=== PATIENT | female | born 1945 | race Caucasian/White ===

== ENCOUNTER 2019-12-09 10:38 | Outpatient (CLI) | payer OTHER, SELFPAY ==
[2019-12-09 11:53] LABS: Albumin Level 4.2 g/dL (3.5-5.1); Estimated Glomerular Filt Rate > 60
== END 2019-12-09 10:39 | disposition home or self-care (01) ==
PROVIDERS: PCP Internal Medicine; Visit Provider Orthopaedic Surgery
DX: M17.11 Unilateral primary osteoarthritis, right knee (principal)
CPT/HCPCS: 36415; 82040; 82565

== ENCOUNTER 2020-04-20 07:52 | Outpatient (CLI) | payer OTHER, SELFPAY ==
--- NOTE | 2020-04-20 08:59 | ECG_ITS ---
Measurements Intervals [place] Rate: 45 P: -18 MS: 147 QRS: 10 QRSD: 106 T: 25 QT: 446 QTc: 388 Interpretive Statements SINUS BRADYCARDIA WITH SINUS ARRHYTHMIA DELAYED PRECORDIAL R/S TRANSITION BASELINE ARTIFACT- I, II, AVR, AVL, AVF, V4-V5 ABNORMAL ECG Electronically Signed On 04-20-2020 9:16:03 CDT by Kiran Chew D.O.
[2020-04-20 09:23] LABS: Basophils Percent Auto 0.7 % (0.2-1.2); Eosinophils Absolute Auto 0.2 K/mm3 (0-0.3); Eosinophils Percent Auto 3.6 % (0-4.4); Hematocrit 42.4 % (37.0-47.0); Hemoglobin 14.7 g/dL (12.0-15.0); Immature Granulocyte Absolute 0.04 K/mm3 (0.00-0.031); Immature Granulocyte Percent A 0.7 % (0-0.5); Lymphocytes Absolute Auto 1.12 K/mm3 (0.9-3.2); Lymphocytes Percent Auto 20.1 % (18.3-44.2); Mean Corpuscular HGB Conc 34.7 g/dl (32-36); Mean Corpuscular Hemoglobin 30.1 pg (26-34); Mean Corpuscular Volume 86.7 fl (80-100); Mean Platelet Volume 9.6 fl (7.4-10.4); Monocytes Absolute Auto 0.8 K/mm3 (0.1-0.6); Monocytes Percent Auto 14.3 % (2.6-8.5); Neutrophils Absolute Auto 3.4 K/mm3 (1.3-6.7); Neutrophils Percent Auto 60.6 % (45.5-73.1); Platelet Count Result 299 k/mm3 (150-375); Red Blood Count 4.89 M/mm3 (4.2-5.4); Red Cell Distribution Width 13.4 % (11.5-14.5); White Blood Count 5.6 K/mm3 (4.5-10.0)
[2020-04-20 09:32] LABS: Albumin Level 4.4 g/dL (3.5-5.1)
[2020-04-20 09:36] LABS: Blood Urea Nitrogen 10 mg/dL (7-17); Carbon Dioxide 30 mmol/L (22-30); Chloride 86 mmol/L (98-107); Estimated Glomerular Filt Rate > 60; Glucose 89 mg/dL (65-105); Potassium 3.9 mmol/L (3.4-5.0); Sodium 123 mmol/L (137-145)
[2020-04-20 09:39] LABS: Urine Cotinine NEGATIVE
[2020-04-20 09:51] LABS: Hemoglobin A1C 5.5 % (<5.7)
== END 2020-04-20 07:53 | disposition home or self-care (01) ==
PROVIDERS: Anesthesiology; PCP Internal Medicine; Visit Provider Orthopaedic Surgery
DX: M17.11 Unilateral primary osteoarthritis, right knee (principal); I10 Essential (primary) hypertension; R94.31 Abnormal electrocardiogram [ECG] [EKG]
CPT/HCPCS: 36415; 80048; 80307; 82040; 83036; 85025; 87081; 93005

== ENCOUNTER 2020-05-14 01:13 | Outpatient (CLI) | payer OTHER, SELFPAY ==
[2020-05-14 23:05] LABS: SARS-CoV-2 RNA PCR Negative
== END 2020-05-14 01:14 | disposition home or self-care (01) ==
LOC: ANHCOVIDDT 01:13
PROVIDERS: PCP Internal Medicine; Visit Provider Orthopaedic Surgery
DX: Z01.812 Encounter for preprocedural laboratory examination (principal); Z11.59 Encounter for screening for other viral diseases
CPT/HCPCS: 87635; C9803; U0003

== ENCOUNTER 2020-05-17 01:13 | Day surgery (SDC) | payer OTHER, SELFPAY ==
[2020-04-20 08:15] VITALS: BMI 27.3
[2020-04-20 08:16] VITALS: BP 155/69; PULSE 50; RESP 18; TEMP 36.9; O2SAT 100
[2020-05-17] VITALS (13 sets, daily range): BP systolic 122–155; BP diastolic 59–83; PULSE 47–60; RESP 12–18; TEMP 35.7–36.5; O2SAT 93–100
--- NOTE | ~2020-05-17 | XR_ITS ---
EXAMINATION: XR knee RT 2V DATE: 05/17/2020 10:27 INDICATION: Right knee arthroplasty. Postop. TECHNIQUE: 2 views of right knee were obtained. COMPARISON: Right knee radiographs 10/22/2019 FINDINGS: There is a total right knee arthroplasty with patellar resurfacing in near-anatomic alignme nt. No fracture. There is gas in the soft tissues and knee joint, consistent with recent surgery. IMPRESSION: 1. Total right knee arthroplasty in near-anatomic alignment. Reviewed, dictated and finalized at location A.
[2020-05-17] MEDS: ACETAMINOPHEN 500 MG TABLET 1000 MG PO (06:45)
[2020-05-17] MEDS: LACTATED RINGERS 1,000 ML 30 ML IV CONT ×2 (06:50→10:39)
[2020-05-17] MEDS: KETOROLAC 15 MG/ML VIAL (*BKC) IV PUSH (06:52)
[2020-05-17] MEDS: TRANEXAMIC ACID 1,000MG/ISO100 1,000 MG/100 ML BAG 200 MG IVPB (06:55)
--- NOTE | 2020-05-17 06:58 | WPDANESEPPF ---
Anes - Initial Pre Proc Eval Procedure: Operation Date: 05/17/20 07:30 Proposed Procedures p Right Total Knee Arthroplasty - Tone Redmond MD Date/Time: 05/17/20 06:58 Surgeon: Tone Redmond MD Pre Op Diagnosis: Right Knee OA Patient Data Age: 75 Gender: F Height: 1.73 m Weight: 81.4 kg Last Vital Signs Temp 36.9 C 04/20/20 08:16 Pulse 50 L 04/20/20 08:16 Resp 18 04/20/20 08:16 BP 155/69 H 04/20/20 08:16 Pulse Ox 100 04/20/20 08:16 Allergies Allergy/AdvReac Type Severity Reaction Status Date / Time WENDI Inhibitors Allergy Unknown Cough Verified 05/09/20 08:09 clonidine Allergy Unknown Hives Verified 05/09/20 08:09 Home Medications Medication Instructions Recorded Confirmed Type atorvastatin 20 mg tablet 20 mg PO DAILY 10/22/19 05/09/20 History bimatoprost 0.01 % eye drops 1 drop EACH EYE HS 10/22/19 05/09/20 History nebivolol 10 mg tablet 5 mg PO DAILY 10/22/19 05/09/20 History omeprazole 20 mg capsule,delayed 20 mg PO PRN PRN 10/22/19 05/09/20 History release calcium carbonate-vitamin D3 1 tablet PO BID 04/20/20 05/09/20 History [Calcium 600 + D(3)] melatonin 6 mg PO HS PRN 04/20/20 05/09/20 History tslyfwbwaw-icdxyzrbj-vxqripzvl 1 tablet PO DAILY 04/20/20 05/09/20 History omega 5-bbu-itd-fish oil [Fish Oil] 1 cap PO DAILY 04/20/20 05/09/20 History vit C-vit O-qmvllp-hoae-lutein 2 cap PO DAILY 04/20/20 05/09/20 History [PreserVision Lutein] Patient hx anesthesia problems: none Family hx anesthesia problems: none PMFSH Past Medical History Medical History (Updated 05/16/20 @ 09:47 by Velasquez Pepper DO) Breast cancer GERD (gastroesophageal reflux disease) Glaucoma Hyperlipidemia Hypertension Unilateral primary osteoarthritis, right knee UTI (urinary tract infection) Surgical History Surgical History (Updated 05/16/20 @ 09:47 by Velasquez Pepper DO) History of lumpectomy (~04/2011) History of tubal ligation Social History Social History Smoking status: Never smoker Second hand tobacco smoke exposure: No Additional smoking assessment comments: DENIES ANY FORM OF TOBACCO USE Alcohol intake: former Drinks per week: 3 Substance use: never Living arrangements: with family Spiritual care concerns: No Anes - Eval Final PreProcedure Day of Procedure 05/17/20 06:58 Patient weight: overweight Heart: regular rate and rhythm Lungs: clear to auscultation and normal air movement Airway: Mallampati scale class 1 Neurological: alert and oriented Last oral intake: >/= 8 hours ASA classification: III Emergent: no Anesthetic plan: proceed Anesthesia type and monitoring: general LMA and standard monitoring Informed Consent: The patient's anesthetic plan and its attendant risks and benefits were discussed with the patient/family/POA. Questions were solicited and answers provided to the satisfaction of the patient/family/POA.
--- NOTE | 2020-05-17 06:59 | WPDANESPNB ---
Anes - Peripheral Nerve Block Date/Time: 05/17/20 06:59 I have discussed with the patient/family/POA the placement of a peripheral nerve block for post-operative pain management, including associated risks, benefits, complications, and side effects. Alternative methods of post-operative analgesia were detailed. Questions were solicited and answers provided to the satisfaction of the patient/family/POA. Time-Out: A pre-procedural Time-Out was completed immediately before starting the procedure and confirmed: Patient Identification, Site, Procedure, Patient Position and the Availability of Requisite Equipment. Clinical Indications: Acute post-operative pain management requested by the operative surgeon. Nerve Block Insertion Note Anes-nerve block: adductor canal right Patient position: supine Skin prep: chlorhexidine Needle: 22 gauge, stimulating, insulated echogenic needle. Needle length: 80 mm Technique: ultrasound Injectate: bupivacaine 0.5% with epi 5 mcg/ml (30cc) Observations: tolerated well Complications: none Procedure start time:: 719 Procedure end time:: 722
--- NOTE | 2020-05-17 07:20 | WPDHPUPDATE1 ---
History and Physical Update Update Date/Time: 05/17/20 07:20 History and Physical has been reviewed, including an updated exam of the patient. There are NO changes in the patient's condition. Risks, benefits, and alternatives have been discussed and questions answered. Patient agrees to proceed with procedure.
[2020-05-17] MEDS: ceFAZolin 2 GM/D5W 50 ML 2 GM/50 ML BAG IVPB (07:30)
[2020-05-17] MEDS: GENTAMICIN BONE CEMENT REFOBACIN 1 EACH TOPICAL (09:12)
--- NOTE | 2020-05-17 10:19 | PM.PROC ---
Procedure Note - Detailed Date of procedure: 05/17/20 Pre-op diagnosis: Right Knee OA Post-op diagnosis: same Procedure performed: Total knee arthroplasty Description of procedure: Valgus knee deformity. Large degenerative cyst at the lateral tibia which was bone grafted. Short 50 mm stem extension was used on the tibia. A large lateral release was required. Implants: [place] Triathlon knee system, [place] base plate cemented tibia size 4, 50 mm cemented stem extension. cruciate stabilized pressfit femoral component size 4 ,and an 11 mm cruciate stabilized polyethylene insert. 35mm metal backed patella component. Anesthesia: GETA and regional (subsartorial nerve block) Surgeon: Tone Redmond MD Estimated blood loss (mL): 100 Drains: No Complications: None Condition: stable Disposition: PACU Findings: OPERATIVE DETAILS: The patient was given a nerve block preoperatively, and then brought to the operating room. A general anesthetic was administered. The leg was prepped and draped in the usual sterile fashion. The limb was elevated and the tourniquet inflated to 300 mmHg during the procedure. A longitudinal incision was created along the medial border of the patella and patellar tendon, and a midvastus approach to the knee was performed. No medial release was taken. The knee was then flexed. The osteophytes were carefully removed. The intramedullary guide was placed in the femoral canal. The distal femoral resection was then taken with the oscillating saw. The collateral ligaments were carefully protected. The tibia was carefully exposed. The jig was applied, and the proximal tibia was resected according to the preoperative plan. The knee was balanced in extension. A lateral release was performed, and sequentially increased during the procedure. The anterior cruciate ligament and meniscal remnants were removed. The posterior cruciate ligament was preserved. The patella was measured. Patellar resection was carried out with the oscillating saw. The femur was sized and rotation assessed using a combination of gap balancing, posterior referencing, and the AP axis. The 4 in 1 cutting block was at 4 degrees external rotation to finish the femoral cuts after equal gaps were assured. The lug holes were drilled. The osteophytes were carefully removed from the back of the knee. Appropriate balance with trialing was performed. The knee was copiously irrigated with antibiotic solution periodically throughout the procedure. The meniscal remnants were removed. The spacer block was used to confirm equal flexion and extension gaps. The tibia was sized and broached. Central drilling for the short stem was performed. The bony surfaces were prepared for cementing with pulsatile lavage. Morselized graft, and a solid piece of bone graft was placed and the posterior lateral bony defect. The real tibia was cemented, and the femoral, and patellar components were pressfit into position. Excess cement was carefully removed. Patellar tracking was carefully assessed. No additional releases were required. The wound was closed with #1 Vicryl suture, #2 Quill suture, 0-Quill suture, and 2-0 Quill suture followed by Steri-Strips. A sterile bulky dressing was applied. Meticulous hemostasis was maintained throughout the procedure. The Aquamantis device was used for additional hemostasis. The pain relieving mixture was injected after the exposure. There were no complications. The patient was extubated and brought to the recovery room in stable condition after the application of sterile dressing with Joshua bandage.
--- NOTE | 2020-05-17 11:20 | ADMGEN ---
This patient, Ilda Kaur, was admitted to 2 Medical Room 242-. Patient/family oriented to hospital policies and general routines including ID bracelet, bed and alarms, visiting hours, pain management, procedures, bathroom and other care routines, personal items, smoking policy, room service/diet, and visiting hours. Valuables list has been completed. Information on how to activate the Rapid Response Team has been discussed. Patient/Family are encouraged to report perceived risks to care and to ask questions if they do not understand what they are told or what they should do.
[2020-05-17] MEDS: SODIUM CHLORIDE 0.9% IV 1,000 ML 125 ML IV CONT (11:55)
--- NOTE | 2020-05-17 12:49 | PC.NURSE ---
Patient's Olmasartan was previously put in computer med list as 5mg daily. However, based upon patients med list she gave me during admission, she takes 40mg daily. Patient states her doctor just changed her medications around recently and this was the newest dose. Called to Dr. Redmond's office to notify that the 5mg was restarted for her hospital stay, however she takes the 40mg. Received orders that it is okay to change the dose to what she normally takes at home.
[2020-05-17] MEDS: ONDANSETRON INJ 4 MG/2 ML VIAL IV PUSH ×2 (13:33→17:27)
[2020-05-17] MEDS: ASPIRIN 81 MG ENTERIC TABLET PO (17:24)
[2020-05-17] MEDS: DOCUSATE SODIUM 100 MG CAPSULE PO (17:24)
[2020-05-17] MEDS: MELOXICAM 7.5 MG TABLET PO (17:24)
[2020-05-17] MEDS: MELATONIN 3 MG TABLET 6 MG PO (21:31)
[2020-05-17] MEDS: PANTOPRAZOLE 40 MG TABLET PO (21:32)
[2020-05-17] MEDS: LATANOPROST 0.005% OP SOLN 2.5 ML BTL 1 DROP EACH EYE (21:32)
[2020-05-18 00:48] VITALS: BP 136/60; PULSE 59; RESP 12; TEMP 36.7; O2SAT 98
[2020-05-18 04:48] VITALS: BP 132/59; PULSE 56; RESP 12; TEMP 37.1; O2SAT 99
[2020-05-18 05:31] LABS: Basophils Percent Auto 0.2 % (0.2-1.2); Eosinophils Percent Auto 0.2 % (0-4.4); Hematocrit 33.4 % (37.0-47.0); Hemoglobin 11.3 g/dL (12.0-15.0); Immature Granulocyte Absolute 0.07 K/mm3 (0.00-0.031); Immature Granulocyte Percent A 0.6 % (0-0.5); Lymphocytes Absolute Auto 1.02 K/mm3 (0.9-3.2); Lymphocytes Percent Auto 8.7 % (18.3-44.2); Mean Corpuscular HGB Conc 33.8 g/dl (32-36); Mean Corpuscular Hemoglobin 29.5 pg (26-34); Mean Corpuscular Volume 87.2 fl (80-100); Mean Platelet Volume 10.2 fl (7.4-10.4); Monocytes Absolute Auto 1.1 K/mm3 (0.1-0.6); Monocytes Percent Auto 9.3 % (2.6-8.5); Neutrophils Absolute Auto 9.5 K/mm3 (1.3-6.7); Platelet Count Result 244 k/mm3 (150-375); Red Blood Count 3.83 M/mm3 (4.2-5.4); Red Cell Distribution Width 13.4 % (11.5-14.5); White Blood Count 11.8 K/mm3 (4.5-10.0)
[2020-05-18 05:41] LABS: Anion Gap 9.9 mmol/L (7-16); Blood Urea Nitrogen 14 mg/dL (7-17); Calcium 8.8 mg/dL (8.4-10.2); Carbon Dioxide 26 mmol/L (22-30); Chloride 96 mmol/L (98-107); Estimated CRCL calculation 72 ml/min; Estimated Glomerular Filt Rate > 60; Glucose 100 mg/dL (65-105); Potassium 3.9 mmol/L (3.4-5.0); Sodium 128 mmol/L (137-145)
[2020-05-18] MEDS: ATORVASTATIN 20 MG TABLET PO (08:02)
[2020-05-18] MEDS: OPTI-GEN TAB 2 TABLET PO (08:02)
[2020-05-18 08:03] VITALS: PULSE 60
[2020-05-18] MEDS: ASPIRIN 81 MG ENTERIC TABLET PO (08:03)
[2020-05-18] MEDS: MELOXICAM 7.5 MG TABLET PO (08:03)
[2020-05-18] MEDS: NEBIVOLOL HCL 5 MG TABLET PO (08:03)
[2020-05-18] MEDS: DOCUSATE SODIUM 100 MG CAPSULE PO (08:04)
[2020-05-18] MEDS: OLMESARTAN MEDOXOMIL 20 MG TABLET 40 MG PO (08:04)
--- NOTE | 2020-05-18 08:10 | WPDANESPN ---
Anes - Prog Note Post-Op Date/Time: 05/18/20 08:10 Cardiovascular status: normal Respiratory status: normal Airway patency: baseline Mental status: baseline Post-Op hydration status: normal Vital Signs: Last Vital Signs Temp 37.1 C 05/18/20 04:48 Pulse 60 05/18/20 08:03 Resp 12 05/18/20 04:48 BP 132/59 L 05/18/20 04:48 Pulse Ox 99 05/18/20 04:48 I/O: Intake & Output 05/17/20 05/18/20 05/18/20 23:59 07:59 15:59 Intake Total 1409 150 Output Total 425 1550 Balance 984 -1400 Laboratory Tests 05/18/20 05:03 05/18/20 05:03 05/17/20 05/18/20 05/18/20 06:38 05:03 05:03 WBC 11.8 H RBC 3.83 L Hgb 11.3 L D Hct 33.4 L MCV 87.2 MCH 29.5 MCHC 33.8 RDW 13.4 Plt Count 244 MPV 10.2 Immature Gran % (Auto) 0.6 H Neut % (Auto) 81.0 H Lymph % (Auto) 8.7 L Gregg % (Auto) 9.3 H Eos % (Auto) 0.2 Baso % (Auto) 0.2 Lymph # (Auto) 1.02 Gregg # (Auto) 1.1 H Eos # (Auto) 0.0 Baso # (Auto) 0.0 Abs Immat Gran (auto) 0.07 H Absolute Neuts (auto) 9.5 H Absolute Nucleated RBC 0.0 Nucleated RBC % 0.0 Sodium 128 L Potassium 3.9 Chloride 96 L Carbon Dioxide 26 Anion Gap 9.9 BUN 14 Creatinine 0.60 L Estim Creat Clear Calc 72 Estimated GFR > 60 Glucose 100 Calcium 8.8 Blood Type O Positive Antibody Screen Negative Post-procedural complaints: none Patient Feedback: Patient satisfied with anesthetic care.
[2020-05-18 08:15] VITALS: BP 139/62; PULSE 60
[2020-05-18] MEDS: ONDANSETRON HCL ODT 4 MG TABLET PO (11:01)
[2020-05-18] MEDS: amLODIPine BESYLATE 5 MG TABLET 10 MG PO (12:08)
[2020-05-18 12:09] VITALS: BP 145/61; PULSE 60
== END 2020-05-18 16:15 | disposition home or self-care (01) ==
LOC: ANHSURGERY 06:32 → ANH2MED 11:05
PROVIDERS: PCP Internal Medicine; Visit Provider Orthopaedic Surgery
PROC: (CPT 27447; principal; 2020-05-17 07:30)
DX: M17.11 Unilateral primary osteoarthritis, right knee (principal); G89.18 Other acute postprocedural pain; I10 Essential (primary) hypertension; E78.5 Hyperlipidemia, unspecified; K21.9 Gastro-esophageal reflux disease without esophagitis; H40.9 Unspecified glaucoma; Z85.3 Personal history of malignant neoplasm of breast
CPT/HCPCS: 27447; 64447; 36415; 73560; 80048; 85025; 86850; 86900; 86901; 87635; 97110; 97116; 97161; 97165; 97530; A9270; C1713; C1776; C9803; J0131; J0171; J0690; J1100; J1885; J2250; J2270; J2405; J2704; J2795; J3010; J7030; J7120; U0003

== ENCOUNTER 2021-04-25 13:04 | Outpatient (CLI) | payer OTHER, SELFPAY ==
--- NOTE | ~2021-04-25 | DEXA_ITS ---
Bone Density Report Name: Ilda Kaur Age: 75 Sex: Female Ethnicity: White Date of : 1945 Indication: osteopenia; parental hip fracture; cancer; Referring Provider: [place], [place] Study: Bone densitometry was performed. Exam Date: April 25, 2021 Accession number: [id number] Bone Density: Region BMD T-score Z-score Classification AP Spine (L1, L2, L4) 0.747 -2.6 -0.3 Osteoporosis Femoral Neck (Left) 0.704 -1.3 0.7 Osteopenia Total Hip (Left) 0.803 -1.1 0.6 Osteopenia Total Hip Bilateral Avg 0.801 -1.2 0.6 Osteopenia Femoral Neck (Right) 0.699 -1.3 0.7 Osteopenia Total Hip (Right) 0.799 -1.2 0.5 Osteopenia World Health Organization criteria for BMD impression classify patients as: Normal (T-score at or above -1.0), Osteopenia (T-score between -1.0 and -2.5), or Osteoporosis (T-score at or below -2.5). 10-year Fracture Risk: FRAX not reported because: Some T-score for Spine Total or Hip Total or Femoral Neck at or below -2.5 Previous Exams: Region Exam Age BMD T-score BMD Change BMD Change Date g/cm2 vs Baseline vs Previous AP Spine(L1, L2, L4) 04/25/2021 75 0.747 -2.6 -0.083(-10.0%) -0.021(-2.7%) 12/30/2018 73 0.768 -2.4 -0.062(-7.5%)# -0.036(-4.4%)* 03/22/2015 69 0.804 -2.1 -0.027(-3.2%)# -0.027(-3.2%)# 11/27/2011 66 0.831 -1.8 Total Hip(Left) 04/25/2021 75 0.803 -1.1 -0.062(-7.1%)# -0.103(-11.4%) 12/30/2018 73 0.905 -0.3 0.041(4.8%)# 0.047(5.4%)* 03/22/2015 69 0.859 -0.7 -0.005(-0.6%)# -0.005(-0.6%)# 11/27/2011 66 0.864 -0.6 Total Hip(Right) 04/25/2021 75 0.799 -1.2 -0.183(-18.7%) -0.130(-13.9%) 12/30/2018 73 0.929 -0.1 -0.054(-5.5%)# 0.021(2.3%) 03/22/2015 69 0.908 -0.3 -0.075(-7.6%)# -0.075(-7.6%)# 11/27/2011 66 0.982 0.3 *Denotes significance at 95% confidence level, LSC for AP Spine = 0.022 g/cm2, LSC for Total Hip = 0.027 g/cm2 Clinical Information Provided by Patient: Parent has had a hip fracture Has used the following medications: Vitamin D, Calcium Has the following medical conditions: Cancer Patient maximum height was 69 Menopause Age: 57 Drinks caffeinated beverages Onset of menses at age 15 Number of children 3 Impression: The patient has osteoporosis, based on the Total Spine T-score. The patient has risk factors, including: parental hip fracture. The BMD for the Total Hip(Left) decreased, changing by -11.4% since the last DXA exam. The BMD
== END 2021-04-25 13:05 | disposition home or self-care (01) ==
LOC: ANHIMG 13:06
PROVIDERS: PCP Internal Medicine; Visit Provider Internal Medicine
DX: M81.0 Age-related osteoporosis without current pathological fracture (principal); M85.852 Other specified disorders of bone density and structure, left thigh; M85.851 Other specified disorders of bone density and structure, right thigh
CPT/HCPCS: 77080

== ENCOUNTER 2024-04-24 12:26 | Outpatient (CLI) | payer OTHER, SELFPAY ==
--- NOTE | ~2024-04-24 | XR_ITS ---
EXAMINATION: XR knee LT min 4V DATE: 04/24/2024 13:17 INDICATION: Left knee pain. TECHNIQUE: 4 views of left knee including standing views were obtained. COMPARISON: Left knee radiographs 12/08/2013 FINDINGS: There is valgus angulation at the knee. No fracture. There is moderate osteoarthritis of la teral compartment and mild osteoarthritis of medial and patellofemoral compartments. There is a small knee joint effusion. IMPRESSION: 1. Moderate left knee osteoarthritis. 2. Small left knee joint effusion. Reviewed, dictated and finalized at location A.
--- NOTE | ~2024-04-24 | DEXA_ITS ---
Bone Density Report Name: LIDYA SHAFFER Age: 78 Sex: Female Ethnicity: White Date of : 1945 Indication: osteopenia; monitoring treatment; parental hip fracture; height loss; cancer; Referring Provider: YAS, SAMUEL Study: Bone densitometry was performed. Exam Date: April 24, 2024 Accession number: [id number] Bone Density: Region BMD T-score Z-score Classification AP Spine(L1-L4) 0.875 -1.6 0.9 Osteopenia Femoral Neck (Left) 0.754 -0.9 1.3 Normal Total Hip (Left) 0.873 -0.6 1.3 Normal Femoral Neck (Right) 0.772 -0.7 1.5 Normal Total Hip (Right) 0.885 -0.5 1.4 Normal Total Hip Mean 0.879 -0.6 1.4 Normal World Health Organization criteria for BMD impression classify patients as: Normal (T-score at or above -1.0), Osteopenia (T-score between -1.0 and -2.5), or Osteoporosis (T-score at or below -2.5). 10-year Fracture Risk: FRAX not reported because: Treated for osteoporosis Previous Exams: Region Exam Age BMD T-score BMD Change BMD Change Date g/cm2 vs Baseline vs Previous AP Spine (L1-L4) 04/24/2024 78 0.875 -1.6 0.068 (8.4%)* 0.091 (11.7%)* 12/30/2018 73 0.784 -2.4 -0.024 (-2.9%) -0.024 (-2.9%) 03/22/2015 69 0.807 -2.2 Total Hip(Left) 04/24/2024 78 0.873 -0.6 0.014 (1.6%) 0.070 (8.7%)* 04/25/2021 75 0.803 -1.1 -0.056 (-6.6%) -0.103 (-11.4% 12/30/2018 73 0.905 -0.3 0.047 (5.4%)* 0.047 (5.4%)* 03/22/2015 69 0.859 -0.7 Total Hip(Right) 04/24/2024 78 0.885 -0.5 -0.023 (-2.5%) 0.086 (10.8%)* 04/25/2021 75 0.799 -1.2 -0.109 (-12.0% -0.130 (-13.9% 12/30/2018 73 0.929 -0.1 0.021 (2.3%) 0.021 (2.3%) 03/22/2015 69 0.908 -0.3 *Denotes significance at 95% confidence level, LSC for AP Spine = 0.022 g/cm2, LSC for Total Hip = 0.027 g/cm2 Clinical Information Provided by Patient: Parent has had a hip fracture Is being treated for osteoporosis Has used the following medications: Reclast (i.e. zoledronate), Vitamin D, Calcium Has the following medical conditions: Cancer Patient maximum height was 68.5 Drinks caffeinated beverages Onset of menses at age 15 Number of children 3 Impression: The patient has low bone mass, based on the Total Spine T-score. The patient has risk factors, including: parental hip fracture. No significant bone loss was observed. Discussion: PATIENT UNDER TREATMENT WITH NO SIGNIFICANT BMD LOSS SINCE LAST EXAM. In an untreated isaías
== END 2024-04-24 12:27 | disposition home or self-care (01) ==
PROVIDERS: PCP Internal Medicine; Visit Provider Orthopaedic Surgery
DX: M25.462 Effusion, left knee (principal); M17.12 Unilateral primary osteoarthritis, left knee; M85.88 Other specified disorders of bone density and structure, other site
CPT/HCPCS: 73564; 77080

== ENCOUNTER 2024-06-19 11:58 | Outpatient (CLI) | payer OTHER, SELFPAY ==
[2024-06-19 13:28] LABS: Albumin Level 3.9 g/dL (3.5-5.1)
[2024-06-19 13:30] LABS: Urine Cotinine NEGATIVE
[2024-06-19 13:50] LABS: Hemoglobin A1C 5.5 % (<5.7)
[2024-06-19 14:29] LABS: MRSA (PCR) NOT DETECTED (NOT DETECTE)
== END 2024-06-19 11:59 | disposition home or self-care (01) ==
PROVIDERS: PCP Internal Medicine; Visit Provider Orthopaedic Surgery
DX: Z01.818 Encounter for other preprocedural examination (principal); M17.12 Unilateral primary osteoarthritis, left knee
CPT/HCPCS: 80307; 82040; 83036; 87641

== ENCOUNTER 2024-07-14 01:14 | Day surgery (SDC) | payer OTHER, SELFPAY ==
[2024-06-19 12:24] VITALS: BP 121/74; PULSE 61; RESP 16; TEMP 36.8; O2SAT 99; BMI 28.5
--- NOTE | 2024-06-19 12:42 | PC.NURSE ---
Report to the Outpatient Waiting Room, entrance under the green pavilion located off [facility], at time _8:30am_ on date __07/14/24_. Planned Procedure Time: __10:30am .? Time changes happen often and if your time is changed the preop area will call you the afternoon before. - You and your visitor will be asked to self-screen and do not enter if you have any COVID symptoms. Please call surgeon if you need to reschedule. - A mask is optional within the hospital at this time. Patients may have clear liquids (water, carbonated beverages, clear teas, apple juice) until 3 hours prior to surgery with a maximum of 20 ounces. - No food from midnight until time of surgery and no smoking. Take only the following medications with a SIP of water on the morning of surgery: ___AMLODIPINE, NEBIVOLOL DO NOT STOP ANY OF YOUR OTHER PRESCRIPTION MEDICATIONS PRIOR TO SURGERY EXCEPT THE FOLLOWING Medications to discontinue per physician ___HOLD ALL VITAMINS/SUPPLEMENTS AND IBUPROFEN(NSAIDS) 7 DAYS PRE-OP PER DR TRAN___ Date to take last dose 07/06/24 Please no make-up, nail yi, hairspray, perfume, deodorant, or body powder the day of surgery.? No jewelry (including any body piercings) or valuables the day of surgery, leave them at home.? Please take a shower or bath the night before, or the morning of, surgery with an antibacterial soap.? Wear comfortable, loose fitting clothing.? - Jewelry must be removed prior to entering the operating room.? Rings and piercings that are not removed may be cut off. - The hospital will not accept responsibility for valuables.? - Please leave all valuables, including medications, at home the day of surgery. If you are going home after surgery, a licensed tractor trailer truck driver must drive you home.? - NO public transportation without another adult if you receive anesthesia. - We recommend that an adult stay with you for 24 hours following discharge. - We also recommend that you do not drive, make important decision, drink alcoholic beverages, or take any drugs that were not prescribed by your health care provider for at least 24 hours after your discharge time. Follow any additional instructions given to you from your surgeon. Telephone instructions given to ____PATIENT and asked if any additional questions and then verbalized understanding. Patient advised to call surgeon office or pre surgery nurse liaison [phone] if any additional questions.
[2024-07-14] VITALS (17 sets, daily range): BP systolic 124–150; BP diastolic 60–85; PULSE 56–83; RESP 11–18; TEMP 35.8–36.4; O2SAT 95–100
--- NOTE | ~2024-07-14 | XR_ITS ---
[id number] Ordering provider: Tone Redmond MD History: . POST-OP, LEFT TKA . Comparison: None. FINDINGS: BONES: No acute fracture or dislocation. JOINT SPACES: Total knee arthroplasty. SOFT TISSUES: Postoperative changes in the subcutaneous tissues IMPRESSION: No acute osseous abnormality left knee. Total KNEE ARTHROPLASTY. Reviewed, dictated and finalized at location A.
--- NOTE | 2024-07-14 07:17 | WPDHPUPDATE1 ---
History and Physical Update Update Date/Time: 07/14/24 07:17 History and Physical has been reviewed, including an updated exam of the patient. There are NO changes in the patient's condition. Risks, benefits, and alternatives have been discussed and questions answered. Patient agrees to proceed with procedure.
[2024-07-14] MEDS: ACETAMINOPHEN 500 MG TABLET 1000 MG PO (09:00)
[2024-07-14] MEDS: LACTATED RINGERS 1,000 ML 30 ML IV CONT ×2 (09:05→12:33)
[2024-07-14] MEDS: TRANEXAMIC ACID 1,000MG/ISO100 1,000 MG/100 ML BAG 200 MG IVPB (09:11)
--- NOTE | 2024-07-14 09:53 | WPDANESEPPF ---
Anes - Initial Pre Proc Eval Procedure: Operation Date: 07/14/24 10:30 Proposed Procedures p Left Total Knee Arthroplasty - Tone Redmond MD Date/Time: 07/14/24 09:53 Surgeon: Tone Redmond MD Pre Op Diagnosis: primary oa left knee Patient Data Age: 79 Gender: F Height: 1.72 m Weight: 82 kg Last Vital Signs Temp 97.0 F L 07/14/24 08:38 Pulse 68 07/14/24 08:38 Resp 18 07/14/24 08:38 BP 137/72 07/14/24 08:38 Pulse Ox 100 07/14/24 08:38 O2 Del Method Room Air 07/14/24 08:38 Allergies Allergy/AdvReac Type Severity Reaction Status Date / Time WENDI Inhibitors Allergy Unknown Cough Verified 07/14/24 08:35 clonidine Allergy Unknown Hives Verified 07/14/24 08:35 Home Medications Medication Instructions Recorded Confirmed Type atorvastatin 20 mg tablet 20 mg PO DAILY 10/22/19 07/14/24 History bimatoprost 0.01 % eye drops 1 drop ophthalmic (eye) HS 10/22/19 07/14/24 History ([place]) omeprazole 20 mg capsule,delayed 20 mg PO PRN PRN Heartburn 10/22/19 07/08/24 History release calcium carbonate 600 mg-vitamin 1 tablet PO BID 04/20/20 07/14/24 History D3 5 mcg (200 unit) tablet (Calcium 600 + D(3)) melatonin 3 mg tablet 6 mg PO HS PRN Insomnia 04/20/20 07/14/24 History omega 6-fmi-jpe-fish oil 1,000 mg 1 cap PO DAILY 04/20/20 07/14/24 History (120 mg-180 mg) capsule (Fish Oil) vit C 226 mg-vit E 90 mg-copper 1 cap PO BID 04/20/20 07/14/24 History 0.8 mg-zinc oxide-lutein 5 mg capsule (PreserVision Lutein) amlodipine 10 mg tablet 10 mg PO DAILY 05/17/20 07/14/24 History olmesartan 5 mg tablet 40 mg PO DAILY 05/17/20 07/14/24 History zoledronic acid 5 mg/100 mL in 1 ea IV DIRECTED 05/11/24 07/08/24 History mannitol 5 %-water intravenous piggybck (Reclast) ibuprofen 200 mg capsule 600 mg PO Q6H PRN Pain 06/19/24 07/14/24 History nebivolol 5 mg tablet 5 mg PO QAM 06/19/24 07/14/24 History Laboratory Tests 07/14/24 09:20 Blood Type Pending Antibody Screen Pending Patient hx anesthesia problems: none Family hx anesthesia problems: none Results Review: All pre-operative results and documents have been reviewed as part of the pre-operative evaluation. [facility] Past Medical History Medical History Breast cancer GERD (gastroesophageal reflux disease) Glaucoma Hyperlipidemia Hypertension Unilateral primary osteoarthritis, right knee UTI (urinary tract infection) Surgical History Surgical History History of lumpectomy (~04/2011) History of tubal ligation Family History Family History Mother Hypertension Grandparent Carcinoma of colon Father Family history of arthritis Other Family history of malignant neoplasm of breast Family history of malignant neoplasm of breast in first degree relative Social History Social History Smoking status: Never smoker Alcohol intake: never Drinks per week: 3 Substance use: never Do You Feel Safe in your Home?: Yes Lack of Transportation: No Lack of Food: Never True Current Housing: I Have Housing Concerned About Future Housing: No Difficulty Paying Gas/Electric Bills: No Difficulty Paying for Meds: No Currently Unemployed: No Education: High School Diploma/GED Difficulty w/ Childcare or Family Care: No Living arrangements: with family Additional living arrangements comments: HUSB Spiritual care concerns: No Anes - Eval Final PreProcedure Day of Procedure 07/14/24 09:53 Patient weight: overweight Heart: regular rate and rhythm Lungs: clear to auscultation Airway: Mallampati scale class II Neurological: alert and oriented Last oral intake: >/= 8 hours ASA classification: II Emergent: no An
[2024-07-14] MEDS: ceFAZolin 2 GM/D5W 50 ML 2 GM/50 ML BAG IVPB ×2 (10:11→17:08)
[2024-07-14] MEDS: SODIUM CHLORIDE 0.9% IV 37.7 ML, MORPHINE SULFATE INJ (*CRX) 2 MG, ROPivacaine HCL 1% 2... INFILTRATE (10:48)
[2024-07-14] MEDS: fentaNYL CITRATE INJ (*CRX) 100 MCG/2 ML VIAL 25 MCG IV PUSH ×8 (12:47→13:24)
[2024-07-14] MEDS: HYDROmorphone HCL INJ (*CRX) 1 MG/ML SYR 0.25 MG IV PUSH ×4 (13:11→14:14)
[2024-07-14] MEDS: KETOROLAC 15 MG/ML VIAL (*BKC) IV PUSH (13:52)
[2024-07-14] MEDS: ONDANSETRON INJ 4 MG/2 ML VIAL IV PUSH ×2 (14:40→20:51)
[2024-07-14] MEDS: SODIUM CHLORIDE 0.9% IV 1,000 ML 125 ML IV CONT (14:40)
--- NOTE | 2024-07-14 14:46 | ADMGEN ---
This patient, Ilda Kaur, was admitted to 3 [facility] Surg Room 309-01. Patient/family oriented to hospital policies and general routines including ID bracelet, bed and alarms, visiting hours, pain management, procedures, bathroom and other care routines, personal items, smoking policy, room service/diet, and visiting hours. Information on how to activate the Rapid Response Team has been discussed. Patient/Family are encouraged to report perceived risks to care and to ask questions if they do not understand what they are told or what they should do.
[2024-07-14] MEDS: ATORVASTATIN 20 MG TABLET PO (16:14)
[2024-07-14] MEDS: OLMESARTAN MEDOXOMIL 20 MG TABLET 40 MG PO (16:14)
[2024-07-14] MEDS: SENNA/DOCUSATE SODIUM TABLET 2 TAB PO (16:14)
[2024-07-14] MEDS: predniSONE 5 MG TABLET PO (16:14)
[2024-07-14] MEDS: ACETAMINOPHEN 325 MG TABLET 650 MG PO ×2 (17:08→23:48)
[2024-07-14] MEDS: ASPIRIN 81 MG ENTERIC TABLET PO (20:52)
[2024-07-14] MEDS: FAMOTIDINE 20 MG TABLET PO (20:52)
[2024-07-14] MEDS: MELATONIN 3 MG TABLET 6 MG PO (20:52)
[2024-07-14] MEDS: oxyCODONE/ACETAMINOPHEN (*CRX) 10-325 MG TABLET 1 TAB PO (20:52)
[2024-07-15 00:07] VITALS: BP 162/82; PULSE 64; RESP 12; TEMP 36.8; O2SAT 98
[2024-07-15] MEDS: ceFAZolin 2 GM/D5W 50 ML 2 GM/50 ML BAG IVPB ×2 (02:02→09:50)
[2024-07-15 04:07] VITALS: BP 132/58; PULSE 60; RESP 12; TEMP 37; O2SAT 100
[2024-07-15 05:53] VITALS: BP 132/58; PULSE 60; RESP 12; TEMP 37; O2SAT 100
[2024-07-15 06:15] LABS: Basophils Percent Auto 0.1 % (0.2-1.2); Hematocrit 34.7 % (37.0-47.0); Hemoglobin 11.6 g/dL (12.0-15.0); Immature Granulocyte Absolute 0.08 K/mm3 (0.00-0.031); Immature Granulocyte Percent A 0.6 % (0-0.5); Lymphocytes Absolute Auto 0.92 K/mm3 (0.9-3.2); Lymphocytes Percent Auto 6.6 % (18.3-44.2); Mean Corpuscular HGB Conc 33.4 g/dl (32-36); Mean Corpuscular Hemoglobin 29.5 pg (26-34); Mean Corpuscular Volume 88.3 fl (80-100); Mean Platelet Volume 9.3 fl (7.4-10.4); Monocytes Absolute Auto 1.5 K/mm3 (0.1-0.6); Monocytes Percent Auto 10.7 % (2.6-8.5); Neutrophils Absolute Auto 11.4 K/mm3 (1.3-6.7); Platelet Count Result 263 k/mm3 (150-375); Red Blood Count 3.93 M/mm3 (4.2-5.4); Red Cell Distribution Width 13.5 % (11.5-14.5); White Blood Count 13.9 K/mm3 (4.5-10.0)
[2024-07-15] MEDS: ACETAMINOPHEN 325 MG TABLET 650 MG PO ×2 (06:19→11:41)
[2024-07-15 06:21] LABS: Anion Gap 8 mmol/L (4-12); Blood Urea Nitrogen 12 mg/dL (7-17); Calcium 7.6 mg/dL (8.4-10.2); Carbon Dioxide 25 mmol/L (22-30); Chloride 92 mmol/L (98-107); Estimated CRCL calculation 67 ml/min; Estimated Glomerular Filt Rate > 60; Glucose 115 mg/dL (65-110); Sodium 125 mmol/L (137-145)
[2024-07-15 07:53] VITALS: BP 132/60; PULSE 63; RESP 18; TEMP 36.6; O2SAT 100
[2024-07-15] MEDS: polyethylene glycoL 3350 17 GM POWD.PACK PO (08:51)
[2024-07-15] MEDS: NEBIVOLOL HCL 5 MG TABLET PO (08:51)
[2024-07-15] MEDS: ASPIRIN 81 MG ENTERIC TABLET PO (08:51)
[2024-07-15] MEDS: OLMESARTAN MEDOXOMIL 20 MG TABLET 40 MG PO (08:52)
[2024-07-15] MEDS: ATORVASTATIN 20 MG TABLET PO (08:52)
[2024-07-15] MEDS: amLODIPine BESYLATE 10 MG TABLET PO (08:52)
[2024-07-15] MEDS: SENNA/DOCUSATE SODIUM TABLET 2 TAB PO (08:52)
[2024-07-15] MEDS: FAMOTIDINE 20 MG TABLET PO (08:52)
[2024-07-15] MEDS: oxyCODONE/ACETAMINOPHEN (*CRX) 10-325 MG TABLET 1 TAB PO (09:50)
[2024-07-15] MEDS: ONDANSETRON INJ 4 MG/2 ML VIAL IV PUSH (09:50)
[2024-07-15 11:53] VITALS: BP 144/79; PULSE 67; RESP 18; TEMP 36.4; O2SAT 99
--- NOTE | 2024-07-15 12:08 | PM.PNORT ---
Progress Note: A&P Assessment and Plan (1) Status post total left knee replacement: Code(s): Z96.652 - Presence of left artificial knee joint Status: Acute (2) Hyponatremia: Code(s): E87.1 - Hypo-osmolality and hyponatremia Status: Acute Plan Postop day 1: Left total knee arthroplasty. Patient tolerated procedure well. No complications. Pain manageable with pain medication. No numbness or tingling. She does have a sodium level of 125. Was 131 pre-op. Patient states she typically has low sodium. She stopped her sodium pills on Saturday. She feels fine. No CP, heart palpitations, SOB. She does have some post op nausea from the anesthesia. Will consult hospitalist for low sodium. Discharge pending medical clearance. Subjective Subjective Date/Time Seen: 07/15/24 12:08 Interval history: Patient resting comfortably. No complaints. Pain controlled. Doing well with therapy. Review of Systems Review of Systems: All systems reviewed & are unremarkable except as noted in HPI and below Exam Narrative: 79-year-old overweight female. Resting comfortably in bed. Sitting up with therapy. Alert and oriented x3. No acute distress. Wearing compression socks bilaterally. Dressing intact with no drainage. Mild swelling. Slight ecchymosis. No erythema. No hematoma. No warmth. Range of motion limited due to pain. Calf nontender. Neurologic status intact. No varicosities. Distal pulses palpable. Quad fires. Light touch sensation intact. Good capillary refill. Objective Data Vital Signs Vital Signs: Vital Signs - 24 hr 07/14/24 12:33 07/14/24 12:48 07/14/24 12:55 Temperature 97.5 F L Pulse Rate 68 59 L Respiratory Rate 11 L 11 L Blood Pressure 141/76 H 124/65 Pulse Oximetry 100 100 100 Oxygen Delivery Simple Face Mask Simple Face Mask Room Air Oxygen Flow Rate 8 8 07/14/24 13:00 07/14/24 13:03 07/14/24 13:15 Temperature Pulse Rate 60 56 L Respiratory Rate 12 14 Blood Pressure 124/85 138/63 Pulse Oximetry 95 99 100 Oxygen Delivery Room Air Nasal Cannula Nasal Cannula Oxygen Flow Rate 3 2 07/14/24 13:30 07/14/24 13:45 07/14/24 14:00 Temperature Pulse Rate 56 L 61 61 Respiratory Rate 14 14 14 Blood Pressure 143/67 H 138/75 132/66 Pulse Oximetry 100 100 100 Oxygen Delivery Nasal Cannula Nasal Cannula Nasal Cannula Oxygen Flow Rate 2 2 2 07/14/24 14:15 07/14/24 14:22 07/14/24 14:37 Temperature 97.2 F L 96.8 F L 96.5 F L Pulse Rate 58 L 70 65 Respiratory Rate 13 14 14 Blood Pressure 130/65 140/69 125/60 Pulse Oximetry 100 99 98 Oxygen Delivery Nasal Cannula Oxygen Flow Rate 2 07/14/24 15:22 07/14/24 16:33 07/14/24 16:07 Temperature 97.0 F L Pulse Rate 83 Respiratory Rate 14 Blood Pressure 148/69 H Pulse Oximetry 98 98 96 Oxygen Delivery Nasal Cannula Room Air Oxygen Flow Rate 2 07/14/24 20:07 07/14/24 20:00 07/15/24 00:07 Temperature 97.3 F L 98.3 F Pulse Rate 77 64 Respiratory Rate 12 12 Blood Pressure 150/74 H 162/82 H Pulse Oximetry 100 98 Oxygen Delivery Room Air Oxygen Flow Rate 07/15/24 04:07 07/15/24 05:53 07/15/24 07:53 Temperature 98.6 F 98.6 F 97.9 F Pulse Rate 60 60 63 Respiratory Rate 12 12 18 Blood Pressure 132/58 L 132/58 L 132/60 Pulse Oximetry 100 100 100 Oxygen Delivery Oxygen Flow Rate 07/15/24 07:57 07/15/24 08:52 07/15/24 11:53 Temperature 97.5 F L Pulse Rate 67 Respiratory Rate 18 Blood Pressure 144/79 H Pulse Oximetry 99 Oxygen Delivery Room Air Room Air Oxygen Flow Rate Intake/Output Intake/Output: Intake & Output 07/12/24 07/13/24 07/14/24 07/15/24 23:59 23:59 23:59 23:59 Intake Total 2240 915 Balance 2240 915 Meds/Results Medications: Active Medications Generic Name Dose Route Start Last Admin Trade Name Freq PRN Reason Stop Dose Admin Acetaminophen 650 mg 07/14/24 18:00 07/15/24 11:41 Acetaminophen 325 Mg Tablet PO 65
--- NOTE | 2024-07-15 12:30 | PM.IMCN ---
Assessment and Plan Assessment and plan (1) Left knee DJD: Qualifiers: Osteoarthritis type: primary Qualified Code(s): M17.12 - Unilateral primary osteoarthritis, left knee Code(s): M17.12 - Unilateral primary osteoarthritis, left knee Status: Acute Assessment and Plan: Patient underwent a total left knee arthroplasty on 07/14/2024. - primary care through orthopedic team - ambulate with assistance and up to chair - use IS - neurovasc checks - see order for intervals - SCDs - analgesics and antiemetics p.r.n. - bowel regimen: docusate/senna, polyethylene glycol - prophylactic abx - PT/OT (2) Hyponatremia: Code(s): E87.1 - Hypo-osmolality and hyponatremia Status: Chronic Assessment and Plan: - Na 125 - since 2019, range has been 123-133 - after shared decision making with patient, will give 1G Na Cl tab now and have patient follow up for lab work tomorrow or Saturday. Educated on red flag symptoms to return for further evaluation. - will try to increase levels through dietary means and restart NaCl tabs (on 53 mg daily at home) at discharge - monitor (3) Hypertension: Qualifiers: Hypertension type: primary hypertension Qualified Code(s): I10 - Essential (primary) hypertension Code(s): I10 - Essential (primary) hypertension Status: Chronic Assessment and Plan: - chronic, currently 144/79 - continue home medications: Bystolic 5 mg daily, olmesartan 40 mg daily, amlodipine 10 mg daily - monitor Plan Patient okay to discharge. Will give 1G NaCl tab now and encouraged to increase dietary sodium intake over the next 24 hours. Have patient follow-up for repeat BMP tomorrow or Saturday. Patient educated on red flag symptoms to return to ED for further evaluation. Diet: Regular GI Prophylaxis: Not currently indicated DVT Prophylaxis: SCDs, TEDs Lines: Peripheral Code Status: Full code HPI Date of Consult Consult date: 07/15/24 Requesting Physician: Tone Redmond MD Primary Care Provider: Cody Aguila, Consult Narrative Reason for consult: low sodium post op Narrative: Ilda Kaur is a 79 year old female that presented here for surgical management of her severe left knee pain with PMH of GERD, HLD, HTN, breast cancer, and glaucoma. The patient presents here severe left knee pain at that has been ongoing for the past 5 months. She reports the knee rapidly deteriorated since January of 2024. Pain is accompanied by instability, catching of the knee, progressive deformity (knock knee), and interference with ambulation. She has previously tried ice, brace, and rest without improvement. Underwent a right knee arthroplasty in 2019 with uneventful recovery and reports she is pleased with the results. She currently reports mild nausea postoperatively. She denies any recent changes to her medical history or medications. Patient reports mild chronic hyponatremia. Patient takes an electrolyte tablet daily that has 53 mg of Sodium per serving. Preop VS: 98.2? F, HR 61, RR 16, 121/74, and 99% on RA. Preop workup: WBC 13.9, hemoglobin 11.6 (previously 11.3 in 2019), sodium 125, creatinine 0.6 and GFR >60, glucose 115. A1C was 5.5% on 06/19/2024. Review of Systems Review of Systems: All systems reviewed & are unremarkable except as noted in HPI and below PMFSH Past Medical History Medical History (Updated 07/15/24 @ 12:42 by Manda Hermosillo APRN) Breast cancer GERD (gastroesophageal reflux disease) Glaucoma Hyperlipidemia Hypertension Unilateral primary osteoarthritis, right knee Surgical History Surgical History History of lumpectomy (~04/2011) History of tubal ligation Family History Family History Mother Hypertension Grandparent Carcinoma of colon Father Family history of arthriti
[2024-07-15] MEDS: SODIUM CHLORIDE 1 GM TABLET PO (13:19)
--- NOTE | 2024-07-15 13:51 | PM.DS ---
DS: Admitting Diagnosis Discharge Date 07/15/24 Admitting Diagnosis Knee arthritis. DS: Discharge Diagnosis Discharge Diagnosis (1) Status post total left knee replacement: Code(s): Z96.652 - Presence of left artificial knee joint Status: Acute (2) Hyponatremia: Code(s): E87.1 - Hypo-osmolality and hyponatremia Status: Chronic Plan Postop day 1: Left total knee arthroplasty. Patient tolerated procedure well. No complications. Pain manageable with pain medication. No numbness or tingling. Does have hyponatremia post operatively. This is chronic. Consulted hospitalist. She was given medication today and will resume her normal medications. She will get follow up lab work done and follow up with her PCP. Increase diatary sodium. She was medically cleared to return home. We had a lengthy discussion regarding postoperative wound care, limitations, expectations, and exercises. Patient shows good understanding. She has had initial physical therapy and is tolerating it well. DVT prophylaxis: 81 mg baby aspirin b.i.d. for 14 days. Pain medication: Percocet. Patient has followup appointment with Dr. Redmond in 3 weeks. DS: Summary Hospital Course Reason for hospitalization: Total knee arthroplasty Hospital Course: Patient tolerated procedure well. Has had initial PT/OT. Status at Discharge Functional status at discharge: uses cane/walker Overall status at discharge: patient is progressing back to baseline Time Spent with Patient Time attestation: Total time spent providing and/or coordinating discharge services: Exam Narrative: Overweight 79 y/o female. Resting comfortably in bed. Wearing compression socks bilaterally. Dressing intact with no drainage. Mild swelling. No ecchymosis. No erythema. No hematoma. Range of motion limited due to pain. Calf nontender. Neurologic status intact. No varicosities. Distal pulses palpable. DS: Data Data Completed and Pending Labs on day of discharge: Labs from last 24 hours 07/15/24 07/15/24 05:48 05:47 WBC 13.9 H RBC 3.93 L Hgb 11.6 L Hct 34.7 L MCV 88.3 MCH 29.5 MCHC 33.4 RDW 13.5 Plt Count 263 MPV 9.3 Immature Gran % (Auto) 0.6 H Neut % (Auto) 82.0 H Lymph % (Auto) 6.6 L [place] % (Auto) 10.7 H Eos % (Auto) 0.0 Baso % (Auto) 0.1 L Lymph # (Auto) 0.92 [place] # (Auto) 1.5 H Eos # (Auto) 0.0 Baso # (Auto) 0.0 Abs Immat Gran (auto) 0.08 H Absolute Neuts (auto) 11.4 H Absolute Nucleated RBC 0.000 Nucleated RBC % 0.0 Sodium 125 L Potassium 4.0 Chloride 92 L Carbon Dioxide 25 Anion Gap 8 BUN 12 Creatinine 0.60 L Estim Creat Clear Calc 67 Estimated GFR > 60 Glucose 115 H Serum Osmolality Pending Calcium 7.6 L Discharge Plan Discharge Patient Disposition: Home, Self-Care Discharge Instructions: See green instruction sheets Patient Instructions: Pain Management (DC) Stand Alone Forms: General Discharge Instructions Follow-up/Referrals: Nayeli Velez PA [Physician Catering Staff Member] - Discharge Medications: New aspirin 81 mg tablet,delayed release (DR/EC) 81 mg PO BID 14 Days Qty: 28 0RF prednisone 5 mg tablet 5 mg PO DAILY 21 Days Qty: 21 0RF oxycodone-acetaminophen 5-325 mg tablet 1 - 2 tablet PO Q4-6H PRN (Reason: pain) 7 Days Qty: 30 0RF ondansetron 4 mg tablet,disintegrating 4 mg PO Q8H Qty: 30 0RF Continued zoledronic [id number] [Reclast] 5 mg/100 mL piggyback 1 ea IV DIRECTED Rx Instructions: ANNUALLY atorvastatin 20 mg tablet 20 mg PO DAILY omeprazole 20 mg capsule,delayed release(DR/EC) 20 mg PO PRN PRN (Reason: Heartburn) Lumigan 0.01 % drops 1 drop EACH EYE HS nebivolol 5 mg tablet 5 mg PO QAM ibuprofen 200 mg Capsule 600 mg PO Q6H PRN (Reason: Pain) melatonin 3 mg Tablet 6 mg PO HS PRN (Reason: Insomnia) calcium
[2024-07-15 16:07] VITALS: BP 140/64; PULSE 66; RESP 18; TEMP 37.1; O2SAT 97
--- NOTE | 2024-07-16 15:58 | W.PM.PROC2 ---
Procedure Note - Detailed Date of Procedure 07/14/24 Pre-op Diagnosis Primary oa left knee Post-op Diagnosis Same Procedure Performed Calipered, kinematically aligned total knee replacement left knee. Surgeon Tone Redmond MD [employer] Nayeli Velez PA-C Anesthesia General Findings According to the calipered kinematic alignment principles, the knee was balanced by the following verification checks incorporating 6 caliper measurements, using an insert goniometer to select the insert thickness, and adjusting the tibial resection following the kinematic alignment algorithm (see figure 160.10 published in [employer] chapter on kinematic alignment total knee arthroplasty.) The steps verified the femoral and tibial components were kinematically aligned coincident to the patient's pre arthritic joint lines, which closely restored the stebbins tibial compartment forces and ligament laxities without ligament release. The [employer] knee, designed specifically for kinematic alignment, fit optimally. The record of verification checks were documented and scanned into the chart. Distal Femoral Resection: Distal Lateral 6 mm(cartilage worn), Distal Medial 8 mm Target thickness of 8mm Unworn, 6mm Worn (No Cartilage). Posterior Femoral Resection: Posterior Medial 6.5 mm(cartilage worn), thus 1.5mm benja applied after corporate quality assurance manager check prior to anterior and chamfer cuts. Posterior Medial [7 mm.] Target thickness of 7mm Unworn, 5mm Worn (No Cartilage). Description of Procedure General anesthesia was administered. A well-padded tourniquet was placed high on the thigh. The limb was prepped and draped in the usual sterile fashion. The limb was exsanguinated and the tourniquet inflated to 300 mmHgduring exposure and cementation. A longitudinal incision was created over the midline of the knee. Sharp dissection was taken through subcutaneous tissues. Electrocautery was used for hemostasis. A trivector approach to the knee joint was performed. The ACL, anterior horns of the menisci, and fat pad were excised, and a subperiosteal dissection was carried along the posterior medial border of the tibia. The thickness of the stebbins patella was measured with a caliper. The patella was resected using the oscillating saw. The best fitting anatomic patella button was selected. The fixation holes were drilled. When the patella and patella buttons combined thickness was thicker than the stebbins patella, the patella was recut. Starting midway between the top of the notch in the anterior femoral cortex, I drilled a 9 mm diameter hole parallel to the anterior cortex to minimize flexion of the femoral component and promote patella tracking. I verified the existence of a 5-10 mm bone bridge between the posterior aspect of the hole and the anterior limit of the intercondylar notch. An intraosseous positioning ceci was inserted 10 cm into the femur perpendicular to the distal joint line and parallel to the anterior cortex. I used a distal femoral referencing guide that compensated 2 mm when the cartilage was worn on the distal medial femoral condyle, and 2 mm when the cartilage was worn on the distal lateral femoral condyle. The basis for setting the distal and posterior femoral resection guide is knowing that the varus and valgus grade II to IV Kellegren-Jarocho osteoarthritic knees have negligible bone wear at 0? and 90? and that the mean full-thickness cartilage wear approximates 2 mm. I measured the thickness of distal femoral resections with a caliper to +/- 0.5 mm. The thickness of each resection was adjusted to match the thickness of the respective condyle of the femoral component within 0.5 mm of target after compensating for cartilage wear and kerf. When the distal resection was 1-2 mm too thin, a recut guide was used to adjust the cut. When the distal resection was too thick, a 1 or 2 mm thick washer was fixed to the back of the 4-in-1 chamfer block t
== END 2024-07-15 16:20 | disposition home or self-care (01) ==
LOC: ANHSURGERY 12:36 → ANH3MEDSUR 14:25
PROVIDERS: Physician Assistant Surgical; Student in an Organized Health Care Education/Training Program; PCP Internal Medicine; Visit Provider Orthopaedic Surgery
PROC: (CPT 27447; principal; 2024-07-14 10:30)
DX: M17.12 Unilateral primary osteoarthritis, left knee (principal); E87.1 Hypo-osmolality and hyponatremia; I10 Essential (primary) hypertension; E78.5 Hyperlipidemia, unspecified; H40.9 Unspecified glaucoma; K21.9 Gastro-esophageal reflux disease without esophagitis; Z85.3 Personal history of malignant neoplasm of breast
CPT/HCPCS: 27447; 36415; 73560; 80048; 80307; 82040; 83036; 83930; 85025; 86850; 86900; 86901; 87641; 97110; 97116; 97161; 97165; 97530; 97535; C1776; A9270; C1713; J0171; J0690; J1100; J1170; J1885; J2270; J2405; J2704; J2795; J3010; J7030; J7120; J7512

== ENCOUNTER 2024-07-17 10:52 | Outpatient (CLI) | payer OTHER, SELFPAY ==
[2024-07-17 11:41] LABS: Alanine Aminotransferase 23 U/L (6-35); Albumin Level 3.8 g/dL (3.5-5.1); Alkaline Phosphatase 75 U/L (38-126); Anion Gap 7 mmol/L (4-12); Aspartate Amino Transferase 38 U/L (14-36); Bilirubin,Total 0.8 mg/dL (0.2-1.3); Blood Urea Nitrogen 9 mg/dL (7-17); Calcium 8.6 mg/dL (8.4-10.2); Carbon Dioxide 29 mmol/L (22-30); Chloride 92 mmol/L (98-107); Estimated Glomerular Filt Rate > 60; Glucose 106 mg/dL (65-110); Potassium 3.6 mmol/L (3.4-5.0); Sodium 128 mmol/L (137-145)
== END 2024-07-17 10:53 | disposition home or self-care (01) ==
LOC: ANHLAB 10:54
PROVIDERS: PCP Internal Medicine; Visit Provider Physician Assistant Surgical
DX: E87.1 Hypo-osmolality and hyponatremia (principal); Z96.652 Presence of left artificial knee joint
CPT/HCPCS: 36415; 80053